=== PATIENT | female | born 1975 | race Caucasian/White ===

== ENCOUNTER 2016-03-15 15:09 | Emergency (ER) | payer OTHER ==
[~2016-03-15] VITALS: Ht 170.2 cm; Wt 90.7 kg
[~2016-03-15 15:09] MED LIST: ALPRAZOLAM0.5 MG PO; CALCITRIOL0.25 MC1 PO; CYCLOBENZAPRINE10 M1 PO; LO LOESTRIN FE1 EACH PO; OSCAL ULTRA 6001 TAB PO; POTASSIUM CHLO20 ME2 PO; PROZAC20 M2 PO
[2016-03-15] MEDS ORDERED: ALPRAZOLAM0.5 M4 PO (15:31)
[2016-03-15] MEDS ORDERED: VITAMIN B-121000 MC3 PO (15:31)
--- NOTE | 2016-03-15 16:11 | ED MVC/FALL/TRAUMA COMPLAINT ---
History of Present Illness General Chief Complaint: Fall Stated Complaint: FALL HIT HEAD/KNEE Source: patient Exam Limitations: no limitations Vital Signs & Intake/Output Vital Signs & Intake/Output Vital Signs Date Time Temp Pulse Resp B/P Pulse O2 O2 Flow FiO2 Ox Delivery Rate 03/15 1759 98.0 92 18 141/85 97 Room Air 03/15 1514 97.4 120 20 132/92 96 Room Air Allergies Coded Allergies: azithromycin (HIVES 01/10/16) Reconcile Medications Alprazolam 0.5 MG TABLET 1 TAB PO BIDP PRN ANXIETY (Reported) [place]/Ca/Cu/MG/Mn/Vit C/Vit (Oscal Ultra 600) 1 TAB TAB 1 TAB PO TID SUPPLEMENT (Reported) Calcitriol 0.25 MCG CAPSULE 1 CAP PO BID SUPPLEMENT (Reported) Cyanocobalamin (Vitamin B-12) 1,000 MCG TABLET 1 TAB PO DAILY SUPPLEMENT ( Reported) Fluoxetine HCl (Prozac) 20 MG CAPSULE 3 CAP PO QAM MENTAL HEALTH (Reported) Norethindrone-E.estradiol-Iron (Lo Loestrin Fe 1-10 Tablet) 1MG-10(24) TABLET 1 TAB PO DAILY BC (Reported) Potassium Chloride 20 MEQ TAB.ER.PRT 1 TAB PO DAILY SUPPLEMENT (Reported) Triage Note: PT TO ED LEFT GREAT TOE PAIN, RIGHT KNEE, AND HEAD PAIN S/P FALLING IN SHOWER. STATES SHE SLIPPED AND FELL DOWN. HITTING KNEE ON TUB AND BACK OF HEAD ON TUB. DENIES LOC. Triage Nurses Notes Reviewed? yes Onset: Abrupt Duration: constant Timing: single episode today Severity: severe Severity Numbers: 7 Injuries/Fall Location: head, lower extremity Loss of Consciousness: unsure : No Patient currently breastfeeds: No HPI: Patient is a 40-year-old female who presents emergency and that while in the shower today she slipped and had a mechanical fall which she subsequently struck the right anterior knee to the fiberglass tub which resulted in the tub cracking and subsequent patient did strike the posterior aspect of her head to the side of the tub. Unknown loss of consciousness. The significant other does present with patient stating that he immediately came to her aid which patient has been in her normal state health and no change in baseline mental status. Patient complains of anterior posterior headache generalized neck pain and right anterior knee pain made worse with ambulation. No medications given prior to arrival. Denies any blurred vision nausea vomiting photophobia abdominal pain. (RAMIN MONTES) Past History Travel History Traveled to [place] past 21 day No Medical History Any Pertinent Medical History? see below for history Neurological: NONE EENT: NONE Cardiovascular: NONE Respiratory: NONE Gastrointestinal: NONE Hepatic: NONE Renal: NONE Musculoskeletal: sciatica Psychiatric: depression Endocrine: PSEUDOPARATHYROIDISM Blood Disorders: NONE Cancer(s): NONE PAVING CONTRACTOR/Reproductive: NONE History of MRSA: No History of VRE: No History of CDIFF: No Influenza Vaccine: 11/23/15 Surgical History Surgical History: non-contributory Psychosocial History Who do you live with Family Services at Home None What is your primary language Setsw[place] Tobacco Use: Never used ETOH Use: denies use Illicit Drug Use: denies illicit drug use Family History Hx Contributory? No (RAMIN MONTES) Review of Systems Review of Systems Constitutional: Reports: no symptoms. Eyes: Reports: no symptoms. Ears, Nose, Throat, Mouth: Reports: no symptoms. Respiratory: Reports: no symptoms. Cardiovascular: Reports: no symptoms. Gastrointestinal/Abdominal: Reports: no symptoms. Genitourinary: Reports: no symptoms. Musculoskeletal: Reports: see HPI, joint pain. Skin: Reports: no symptoms. Neurological/Psychological: Reports: see HPI. All Other Systems: Reviewed and Negative (RAMIN MONTES) Physical Exam Physical Exam General Appearance: no apparent distress Comments: Well-developed well-nourished person in no acute distress HEENT: Normal EENT exam, extraocular motion intact, no nystagmus. Pupils equally round and reactive to light and accommodation. Nose is atraumatic. External auditory canal and Tympanic membranes clear. Pharynx normal. No swelling or edema. Neck: Supple, no lymphadenopathy, normal range of motion without pain or tenderness Decreased active range of motion noted central spinous pain noted generalized point tenderness noted Back: Nontender, no CVA tenderness. Cardiovascular: Regular rate and rhythms no murmurs rubs or gallops, normal JVP Respiratory: Chest nontender. No respiratory distress.breath sounds clear to auscultation bilaterally Abdomen: Soft, nontender nondistended, no appreciable organomegaly. Normal bowel sounds. No ascites Extremity: No edema, no calf tenderness to palpation, normal and equal pulses. Right knee generalized point tenderness noted with skin abrasions noted full active range of motion noted negative valgus stress test negative varus stress test negative anterior drawer test negative posterior drawer test Neuro: Alert oriented x3, motor sensory normal, cranial nerves II through XII grossly intact. Skin: No appreciable rash on exposed skin, skin is warm and dry. Psych: Mood and affect is normal, memory and judgment is normal. Core Measures ACS in differential dx? No Severe Sepsis Present: No Septic Shock Present: No (RAMIN MONTES) Progress Differential Diagnosis: aoritic dissection, abd injury, C/T/L spine injury, ext injury, ICH, pelvis injury, pnemothorax, spinal cord injury Plan of Care: Orders Procedure Date/time Status URINE 03/15 1638 Complete Laboratory Tests 03/15/16 1650: Urine Test NEGATIVE X-rays were unremarkable for osseous injury. There is no signs on physical exam of ligamentous injury. Patient had mild antalgic gait on discharge. Patient declined pain medications when offered. CT scan was unremarkable for acute ICH however I did discuss into no findings of calcifications and CT scan reports which I strongly advised patient to follow up with primary care doctor and was given a copy of CT scan. (JOSE LUIS COSTA,RAMIN) Diagnostic Imaging: Viewed by Me: Radiology Read, CT Scan. Radiology Impression: no acute abnormality Comments: PATIENT: DAVID LOWERY PRESENT AGE: 40 PATIENT ACCOUNT NO: [id number] : 75 LOCATION: [facility] ORDERING PHYSICIAN: RAMIN COSTA SERVICE DATE: 03/15/16-1632 EXAM TYPE: CAT - CT CERV SPINE WO IV CONTRAST; CT HEAD WO IV CONTRAST EXAMINATIONS: CT HEAD WITHOUT CONTRAST AND CT CERVICAL SPINE WITHOUT CONTRAST CLINICAL INFORMATION: History of fall. Possible loss of consciousness. Cervical spine pain. COMPARISON: None. TECHNIQUE: Contiguous helical images of the brain were obtained without IV contrast. Contiguous helical images of the cervical spine were obtained without IV contrast. Multiplanar reconstructions were performed. DLP: 1046.7 mGy-cm FINDINGS: There are no pathologic extra-axial fluid collections. There are marked symmetric calcifications involving the basal ganglia bilaterally. There is a tiny linear focus within the left cerebellar hemisphere measuring approximately 0.5 cm. This morphology would be unusual for hemorrhage. Calcification or artifact is favored. The lateral, third, fourth ventricles are nondilated and concordant with the appearance of the sulci. There is no definite evidence for acute intraparenchymal hemorrhage or infarct. There is neither mass nor mass effect. There is no shift of midline structures. The paranasal sinuses and mastoid air cells are clear. There are no osseous lesions. There is relative straightening of the normal cervical lordosis. Vertebral body heights and intervertebral disc spaces are maintained. The relationship between the lateral masses of C1 and the odontoid process is within normal limits. There is no acute fracture or subluxation. There is no cervical lymphadenopathy. The visualized lung apices are clear. IMPRESSION: 1. No definite acute intracranial hemorrhage. Linear focus within the left cerebellar hemisphere most likely represents calcification or artifact. 2. Extensive calcifications noted in the basal ganglia regions bilaterally. 3. No acute fracture or subluxation involving the cervical spine. 4. Relative straightening of the normal cervical lordosis may be related to patient positioning versus underlying muscle spasm. (RAMIN MONTES) Departure Departure Disposition: HOME OR SELF CARE Condition: Stable Clinical Impression Primary Impression: Right knee pain Secondary Impressions: Concussion, Minor head trauma Referrals: PORFIRIO AUGUSTINE,RODGER Garcia (PCP/Family) Additional Instructions: DISCUSSED BEGIN OVER THE COUNTER TYLENOL OR MOTRIN FOR PAIN AND INFLAMMATION Follow-up in one week to primary care doctor if symptoms do not improve. If symptoms worsen return to emergency room. Begin icing the area directly 20 minutes every 2 hours. Departure Forms: Customer Survey General Discharge Information (RAMIN MONTES) PA/INFECTION CONTROL COORDINATOR Co-Sign Statement Statement: ED Attending supervision documentation- [] I saw and evaluated the patient. I have also reviewed all the pertinent lab results and diagnostic results. I agree with the findings and the plan of care as documented in the PA's/INFECTION CONTROL COORDINATOR's documentation. x I have reviewed the ED Record and agree with the PA's/INFECTION CONTROL COORDINATOR's documentation. [] Additions or exceptions (if any) to the PAs/INFECTION CONTROL COORDINATOR's note and plan are summarized below: [] (IRVIN AUGSUTINE,ISHMAEL)
--- NOTE | 2016-03-15 17:43 | RADIOLOGY REPORT ---
EXAMINATION: XR KNEE, RIGHT CLINICAL INFORMATION: Fall, right knee pain COMPARISON: None. TECHNIQUE: 4 views of the right knee obtained FINDINGS: Medial and lateral joint spaces are maintained. No acute fracture or subluxation. No lytic or sclerotic lesion. No radiopaque foreign body. There is no joint effusion. The patellofemoral compartment is unremarkable aside from a tiny superior pole enthesophyte. No fluid level identified on the crosstable lateral view. IMPRESSION: Unremarkable right knee exam.
[2016-03-15 17:59] VITALS: BP 141/85
--- NOTE | 2016-03-15 18:01 | CT SCAN REPORT ---
EXAMINATIONS: CT HEAD WITHOUT CONTRAST AND CT CERVICAL SPINE WITHOUT CONTRAST CLINICAL INFORMATION: History of fall. Possible loss of consciousness. Cervical spine pain. COMPARISON: None. TECHNIQUE: Contiguous helical images of the brain were obtained without IV contrast. Contiguous helical images of the cervical spine were obtained without IV contrast. Multiplanar reconstructions were performed. DLP: 1046.7 mGy-cm FINDINGS: There are no pathologic extra-axial fluid collections. There are marked symmetric calcifications involving the basal ganglia bilaterally. There is a tiny linear focus within the left cerebellar hemisphere measuring approximately 0.5 cm. This morphology would be unusual for hemorrhage. Calcification or artifact is favored. The lateral, third, fourth ventricles are nondilated and concordant with the appearance of the sulci. There is no definite evidence for acute intraparenchymal hemorrhage or infarct. There is neither mass nor mass effect. There is no shift of midline structures. The paranasal sinuses and mastoid air cells are clear. There are no osseous lesions. There is relative straightening of the normal cervical lordosis. Vertebral body heights and intervertebral disc spaces are maintained. The relationship between the lateral masses of C1 and the odontoid process is within normal limits. There is no acute fracture or subluxation. There is no cervical lymphadenopathy. The visualized lung apices are clear. IMPRESSION: 1. No definite acute intracranial hemorrhage. Linear focus within the left cerebellar hemisphere most likely represents calcification or artifact. 2. Extensive calcifications noted in the basal ganglia regions bilaterally. 3. No acute fracture or subluxation involving the cervical spine. 4. Relative straightening of the normal cervical lordosis may be related to patient positioning versus underlying muscle spasm.
== END 2016-03-15 18:30 ==
LOC: ERH 15:09
DX: S06.0X9A Concussion with loss of consciousness of unspecified duration, initial encounter (principal); S09.90XA Unspecified injury of head, initial encounter; M25.561 Pain in right knee; W01.0XXA Fall on same level from slipping, tripping and stumbling without subsequent striking against object, initial encounter
CPT/HCPCS: 73562-RT; 81025

== ENCOUNTER 2016-06-22 05:44 | Emergency (ER) | payer OTHER ==
[~2016-06-22] VITALS: Ht 167.6 cm; Wt 90.7 kg
[~2016-06-22 05:44] MED LIST changes: +ALPRAZOLAM0.5 M4 PO; +VITAMIN B-121000 MC3 PO
--- NOTE | 2016-06-22 06:14 | ED HEADACHE COMPLAINT ---
History of Present Illness General Chief Complaint: Headache Stated Complaint: LEIGH Source: patient Exam Limitations: no limitations Vital Signs & Intake/Output Vital Signs & Intake/Output Vital Signs Date Time Temp Pulse Resp B/P B/P Pulse O2 O2 Flow FiO2 Mean Ox Delivery Rate 06/22 0713 96.9 84 18 139/83 98 Room Air 06/22 0618 96 Room Air 06/22 0616 98.0 100 18 141/74 96 Room Air Allergies Coded Allergies: azithromycin (HIVES 01/10/16) Reconcile Medications [place]/Ca/Cu/MG/Mn/Vit C/Vit (Oscal Ultra 600) 1 TAB TAB 1 TAB PO TID SUPPLEMENT (Reported) Calcitriol 0.25 MCG CAPSULE 1 CAP PO BID SUPPLEMENT (Reported) Fluoxetine HCl (Prozac) 20 MG CAPSULE 3 CAP PO QAM MENTAL HEALTH (Reported) Norethindrone-E.estradiol-Iron (Lo Loestrin Fe 1-10 Tablet) 1MG-10(24) TABLET 1 TAB PO DAILY BC (Reported) Potassium Chloride 20 MEQ TAB.ER.PRT 1 TAB PO DAILY SUPPLEMENT (Reported) Triage Nurses Notes Reviewed? yes : No Patient currently breastfeeds: No HPI: 40 yo woman in prior good health, with well controlled hypothyroidism, presents with diffuse headache, "I woke up and felt really nauseous... the lights were bothering my eyes... I had a headache." She notes no fevers, chills, dyspnea, cough, numbness, tingling, vision changes. (CHEN AUGUSTINE,EVA Jones) Past History Travel History Traveled to [place] past 21 day No Medical History Any Pertinent Medical History? see below for history Neurological: NONE EENT: NONE Cardiovascular: NONE Respiratory: NONE Gastrointestinal: NONE Hepatic: NONE Renal: NONE Musculoskeletal: sciatica Psychiatric: depression Endocrine: PSEUDOPARATHYROIDISM Blood Disorders: NONE Cancer(s): NONE SALES STORE CHECKER/Reproductive: NONE History of MRSA: No History of VRE: No History of CDIFF: No Surgical History Surgical History: non-contributory Psychosocial History Who do you live with Family Services at Home None What is your primary language American Tobacco Use: Never used Family History Hx Contributory? No (CHEN AUGUSTINE,EVA Jones) Review of Systems Review of Systems Constitutional: Reports: no symptoms. Eyes: Reports: no symptoms. Ears, Nose, Throat, Mouth: Reports: no symptoms. Respiratory: Reports: no symptoms. Cardiovascular: Reports: no symptoms. Gastrointestinal/Abdominal: Reports: no symptoms. Genitourinary: Reports: no symptoms. Musculoskeletal: Reports: no symptoms. Skin: Reports: no symptoms. Neurological/Psychological: Reports: no symptoms. Hematologic/Endocrine: Reports: no symptoms. Endocrine: Reports: no symptoms. Immunologic/Allergic: Reports: no symptoms. All Other Systems: Reviewed and Negative (CHEN AUGUSTINE,EVA Jones) Physical Exam Physical Exam General Appearance: well developed/nourished, no apparent distress Head: atraumatic, normal appearance, tenderness at insertion of cervical musculature, pain elicited with scalp manipulation Eyes: Bilateral: normal appearance, PERRL, EOMI. Ears, Nose, Throat: normal pharynx, normal ENT inspection, hearing grossly normal Neck: normal inspection, supple Respiratory: normal breath sounds, chest non-tender, no respiratory distress, quiet respiration, lungs clear Cardiovascular: regular rate/rhythm Gastrointestinal: normal bowel sounds, soft, non-tender Extremities: normal inspection, normal capillary refill, normal range of motion, no edema Psychiatric: awake, alert, oriented x 3 Cranial Nerves: normal hearing, normal speech, PERRL Coordination/Gait: normal finger to nose, normal gait Motor/Sensory: no motor/sensory deficits, motor deficit, sensory deficit Reflexes: 1+: bicep (R), bicep (L). Skin: intact, normal color, warm/dry Core Measures Severe Sepsis Present: No Septic Shock Present: No (CHEN AUGUSTINE,EVA Jones) Progress Differential Diagnosis: cluster LEIGH, migraine LEIGH, musculoskeletal pain, sinusitis , viral cephalgia Plan of Care: Orders Procedure Date/time Status URINE 06/22 624 Complete Laboratory Tests 06/22/16 0637: Urine Test NEGATIVE Diagnostic Imaging: Viewed by Me: CT Scan. Discussed w/RAD: CT Scan. Hand-Off Endorsed To: MIRNA DANIEL DO Endorsed Time: 0700 Pending: CT, labs (CHEN AUGUSTINE,EVA Jones) Departure Departure Disposition: HOME OR SELF CARE Condition: Stable Clinical Impression Primary Impression: Headache Referrals: UNKNOWN (PCP/Family) Departure Forms: Customer Survey General Discharge Information Comments 06/22/16, 6:37am.... pt with headache with both migraine and musculoskeletal components... pt with family history of aneurysm... I have low clinical suspicion, but will check head ct for ICH. (CHEN AUGUSTINE,EVA Jones) Departure Comments 06/22/16 8:44 AM The patient was signed out to me by Dr. Steinberg at 7 AM. She is status post headache. She is medicated in the ED and her headache has near completely resolved. She said yesterday she was doing a new activity which she had never done before. She was in an escape room with her daughter. She said she gradually developed a frontal headache with some photophobia over the last 6-[address] scan of the head was negative, her neurological exam is completely normal now upon my exam, she has no nuchal rigidity and no photophobia. Funduscopic exam is normal and she has no visual complaints. Cranial nerves II through XII are intact. Health Advisor strength is equal. I considered the diagnosis of subarachnoid hemorrhage. Her neurological exam is normal she has no nuchal rigidity. The CT scan of the head was negative. I discussed the risks and benefits of lumbar puncture with the patient. Shared decision-making was utilized with this patient. She also declined blood work. She will return to the emergency department if her headache returns and will follow-up with the neurologist this week. (MIRNA DANIEL DO)
--- NOTE | 2016-06-22 07:54 | CT SCAN REPORT ---
EXAMINATION: CT HEAD WITHOUT CONTRAST CLINICAL INFORMATION: Headache. New onset. COMPARISON: 03/15/2016 TECHNIQUE: Contiguous axial imaging was performed from the skull base to vertex without intravenous administration of contrast. DLP: 600.7 mGy-cm FINDINGS: There is no evidence of acute intracranial hemorrhage or territorial infarction. No abnormal mass effect or midline shift is seen. Wilson to white matter differentiation is well preserved. No extra-axial fluid collections are identified. The ventricles are normal in size. Calcification is present within the bilateral globi pallidi. A linear calcification is also present within the left cerebellar hemisphere, unchanged. Otherwise, there is no abnormal attenuation within the brain parenchyma. The osseous structures and soft tissues are normal. The mastoid air cells and visualized portions of the paranasal sinuses are well aerated. IMPRESSION: No acute intracranial pathology.
[2016-06-22 09:04] VITALS: BP 138/70
== END 2016-06-22 09:04 ==
LOC: ERH 05:44
DX: R51 Headache (principal)
CPT/HCPCS: 81025; 96372; J1885; J3101

== ENCOUNTER 2016-07-22 07:15 | Emergency (ER) | payer OTHER ==
[~2016-07-22] VITALS: Ht 167.6 cm; Wt 90.7 kg
[2016-07-22 07:18] VITALS: BP 128/85
--- NOTE | 2016-07-22 07:34 | ED GENERAL ADULT ---
History of Present Illness General Chief Complaint: Fever Stated Complaint: FEVER Source: patient Exam Limitations: no limitations Vital Signs & Intake/Output Vital Signs & Intake/Output Vital Signs Date Time Temp Pulse Resp B/P B/P Pulse O2 O2 Flow FiO2 Mean Ox Delivery Rate 07/22 0718 98.9 94 20 128/85 98 Room Air Allergies Coded Allergies: azithromycin (HIVES 01/10/16) Reconcile Medications [place]/Ca/Cu/MG/Mn/Vit C/Vit (Oscal Ultra 600) 1 TAB TAB 1 TAB PO TID SUPPLEMENT (Reported) Calcitriol 0.25 MCG CAPSULE 1 CAP PO BID SUPPLEMENT (Reported) Fluoxetine HCl (Prozac) 20 MG CAPSULE 3 CAP PO QAM MENTAL HEALTH (Reported) Norethindrone-E.estradiol-Iron (Lo Loestrin Fe 1-10 Tablet) 1MG-10(24) TABLET 1 TAB PO DAILY BC (Reported) Potassium Chloride 20 MEQ TAB.ER.PRT 1 TAB PO DAILY SUPPLEMENT (Reported) Triage Note: PT TO ED C/O LOW GRADE FEVER SINCE WEDNESDAY. LAST TEMP 102 THIS AM. TOOK TYLENOL. Triage Nurses Notes Reviewed? yes Onset: Abrupt Duration: hour(s): Timing: recent history : No Patient currently breastfeeds: No HPI: 07/22/16 7:30 AM 40-year-old female presents to the emergency department for an isolated fever of 102. The patient states she was in her usual state of health until the past several days when she was taking up some carpet. She's been working on her knees a lot and exerting herself. She says that she also is under a lot of stress currently. This morning she felt hot and took her temperature and it was 102. She says she took some Tylenol and feels better currently. There is no other episodes of fever. She is completely asymptomatic now in the emergency department. There is no cough. There is no headache. There is no rash. There is no tick bite. There is no abdominal pain. There is no ear pain. She is completely asymptomatic other than the isolated single elevated temperature reading. The onset of the symptoms were abrupt, the duration was just this morning, the severity significant; as her symptoms required her to come to the emergency department for care. Past History Travel History Traveled to [place] past 21 day No Medical History Any Pertinent Medical History? see below for history Neurological: NONE EENT: NONE Cardiovascular: NONE Respiratory: NONE Gastrointestinal: NONE Hepatic: NONE Renal: NONE Musculoskeletal: sciatica Psychiatric: anxiety, depression Endocrine: PSEUDOPARATHYROIDISM Blood Disorders: NONE Cancer(s): NONE BODY HANGER/Reproductive: NONE History of MRSA: No History of VRE: No History of CDIFF: No Surgical History Surgical History: non-contributory Psychosocial History Who do you live with Family Services at Home None What is your primary language [place] Tobacco Use: Never used ETOH Use: denies use Illicit Drug Use: denies illicit drug use Family History Hx Contributory? No Review of Systems Review of Systems Constitutional: Reports: fever. EENTM: Reports: no symptoms. Respiratory: Reports: no symptoms. Cardiovascular: Reports: no symptoms. GI: Reports: no symptoms. Genitourinary: Reports: no symptoms. Musculoskeletal: Reports: no symptoms. Skin: Reports: no symptoms. Neurological/Psychological: Reports: anxiety. Hematologic/Endocrine: Reports: no symptoms. Immunologic/Allergic: Reports: no symptoms. Physical Exam Physical Exam General Appearance: well developed/nourished, alert, awake Head: atraumatic, normal appearance Eyes: Bilateral: normal appearance, PERRL, EOMI. Ears, Nose, Throat: normal pharynx, normal ENT inspection Neck: normal inspection, supple, full range of motion Respiratory: normal breath sounds, chest non-tender, no respiratory distress Cardiovascular: regular rate/rhythm Peripheral Pulses: 4+ radial (R), 4+ radial (L) Gastrointestinal: soft, non-tender Back: normal inspection Extremities: normal inspection, no edema Neurologic/Psych: no motor/sensory deficits, awake, alert, oriented x 3 Skin: intact, normal color, warm/dry Core Measures ACS in differential dx? No CVA/TIA Diagnosis: No Severe Sepsis Present: No Septic Shock Present: No Progress Differential Diagnoses I considered the following diagnoses in my evaluation of the patient: [Viral syndrome, intra-abdominal infection, pharyngitis, bacterial infection, erroneous hyperpyrexia, external hyperthermia] Plan of Care: FOLLOW UP WITH HER PCP THIS WEEEK Initial ED EKG: none Departure Departure Disposition: HOME OR SELF CARE Condition: Stable Clinical Impression Primary Impression: Fever Referrals: JORDAN BRIZUELA MD (PCP/Family) Departure Forms: Customer Survey General Discharge Information Comments I discussed options with the patient including obtaining blood samples. Her physical exam is completely normal at this time and she is completely asymptomatic. She will follow up with her doctor this week or return to the emergency department should fever returned or if she feels worse or has any symptoms. Critical Care Note Critical Care Note Critical Care Time: non-applicable
== END 2016-07-22 07:52 ==
LOC: ERH 07:15
DX: R50.9 Fever, unspecified (principal)

== ENCOUNTER 2017-09-07 07:27 | Emergency (ER) | payer OTHER ==
[~2017-09-07] VITALS: Ht 167.6 cm; Wt 104.3 kg
[~2017-09-07 07:27] MED LIST changes: +OS-CAL 500+D31 EACH PO; -OSCAL ULTRA 6001 TAB PO
--- NOTE | 2017-09-07 08:53 | RADIOLOGY REPORT ---
EXAMINATION: XR ELBOW, LEFT CLINICAL INFORMATION: Pain in left elbow for 3 days. COMPARISON: None TECHNIQUE: AP, lateral, and oblique views of the left elbow. FINDINGS: No fracture, subluxation, or joint effusion. The alignment is maintained. There is ill-defined calcification near the triceps insertion which may reflect calcific tendinosis. The soft tissues otherwise appear normal. IMPRESSION: No fracture, subluxation, or joint effusion. 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
--- NOTE | 2017-09-07 09:39 | ED GENERAL ADULT ---
See Addendum History of Present Illness General Chief Complaint: Upper Extremity Injury Stated Complaint: LT ELBOW PAIN Source: patient Exam Limitations: no limitations Vital Signs & Intake/Output Vital Signs & Intake/Output Vital Signs Date Time Temp Pulse Resp B/P B/P Pulse O2 O2 Flow FiO2 Mean Ox Delivery Rate 09/07 0738 98.3 90 18 147/89 98 Room Air Allergies Coded Allergies: azithromycin (HIVES 01/10/16) Reconcile Medications Calcitriol 0.25 MCG CAPSULE 1 CAP PO BID SUPPLEMENT (Reported) Calcium Carbonate/Vitamin D3 (Os-Lester 500+D3 Caplet) 500 MG-600 TABLET 1 TAB PO TID SUPPLEMENT (Reported) Fluoxetine HCl (Prozac) 20 MG CAPSULE 3 CAP PO QAM MENTAL HEALTH (Reported) Potassium Chloride 20 MEQ TAB.ER.PRT 1 TAB PO DAILY SUPPLEMENT (Reported) Triage Note: 41 YO FEMALE TO TRIAGE FOR EVAL OF L ELBOW PAIN X A FEW DAYS. DENIES ANY INJURY. STATES TRIED MOTRIN AND TYLENOL WIHTOUT RELIEF. Triage Nurses Notes Reviewed? yes Onset: Abrupt Duration: day(s): Timing: recent history : No Patient currently breastfeeds: No HPI: 09/07/17 41-year-old female presents to the emergency department for left elbow pain. She says she was dragging a bed last week and now has pain to the left elbow. She does have a history of lateral epicondylitis in the past. She denies any swelling fever or rash or tick bite. She denies other complaints. Physical examination she does have point tenderness to the left lateral epicondyle. She also has pain on range of motion of the left elbow. No swelling. Past History Travel History Traveled to [place] past 21 day No Medical History Any Pertinent Medical History? see below for history Neurological: NONE EENT: NONE Cardiovascular: NONE Respiratory: NONE Gastrointestinal: NONE Hepatic: NONE Renal: NONE Musculoskeletal: sciatica Psychiatric: anxiety, depression Endocrine: PSEUDOPARATHYROIDISM Blood Disorders: NONE Cancer(s): NONE ERP PROGRAMMER/Reproductive: NONE History of MRSA: No History of VRE: No History of CDIFF: No Surgical History Surgical History: non-contributory Psychosocial History Who do you live with Family Services at Home None What is your primary language Azeri Tobacco Use: Never used Family History Hx Contributory? No Review of Systems Review of Systems Constitutional: Denies: fever. EENTM: Reports: no symptoms. Respiratory: Denies: short of breath. Cardiovascular: Denies: chest pain. GI: Denies: abdominal pain. Genitourinary: Reports: no symptoms. Musculoskeletal: Reports: see HPI. Skin: Reports: no symptoms. Neurological/Psychological: Reports: no symptoms. Hematologic/Endocrine: Reports: no symptoms. Immunologic/Allergic: Reports: no symptoms. Physical Exam Physical Exam General Appearance: alert, awake, anxious, moderate distress Head: atraumatic, normal appearance Eyes: Bilateral: normal appearance, PERRL, EOMI. Ears, Nose, Throat: normal pharynx, normal ENT inspection, hearing grossly normal Neck: normal inspection, supple, full range of motion Respiratory: normal breath sounds Cardiovascular: regular rate/rhythm Peripheral Pulses: 4+ radial (R), 4+ radial (L) Gastrointestinal: soft, non-tender Back: normal range of motion Extremities: tenderness Neurologic/Psych: no motor/sensory deficits, awake, alert, oriented x 3 Skin: intact, normal color, warm/dry Comments: She has tenderness to the lateral condyle. She can be put in a sling and take ibuprofen as directed. Core Measures ACS in differential dx? No CVA/TIA Diagnosis: No Sepsis Present: No Sepsis Focused Exam Completed? No Progress Differential Diagnoses I considered the following diagnoses in my evaluation of the patient: [Fracture, dislocation, abscess, cellulitis, lateral epicondyles right's, DVT Plan of Care: Use the sling for 7 days, follow-up with her doctor this week, Shiva for pain Initial ED EKG: none Departure Departure Disposition: STILL A PATIENT Condition: Stable Clinical Impression Primary Impression: Lateral epicondylitis Referrals: Kira AUGUSTIEN,Yessy Dahl (PCP/Family) Departure Forms: Customer Survey General Discharge Information Comments PATIENT: DAVID LOWERY PRESENT AGE: 41 PATIENT ACCOUNT NO: [id number] : 75 LOCATION: [facility] ORDERING PHYSICIAN: Peewee Schulz DO (TBS) SERVICE DATE: 09/07/17215 EXAM TYPE: RAD - XRY-ELBOW 3 OR MORE VIEWS, L EXAMINATION: XR ELBOW, LEFT CLINICAL INFORMATION: Pain in left elbow for 3 days. COMPARISON: None TECHNIQUE: AP, lateral, and oblique views of the left elbow. FINDINGS: No fracture, subluxation, or joint effusion. The alignment is maintained. There is ill-defined calcification near the triceps insertion which may reflect calcific tendinosis. The soft tissues otherwise appear normal. IMPRESSION: No fracture, subluxation, or joint effusion. 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 DICTATED BY: Fatoumata Riley MD DATE/TIME DICTATED:09/07/17846 HIRED HAND:JAMISON DATE/TIME TRANSCRIBED:09/07/17846 CONFIDENTIAL, DO NOT COPY WITHOUT APPROPRIATE AUTHORIZATION. <Electronically signed in Other Vendor System> SIGNED BY: Fatoumata Riley MD 09/07/17 0853 Critical Care Note Critical Care Note Critical Care Time: non-applicable
[2017-09-07 10:23] VITALS: BP 136/70
== END 2017-09-07 10:24 ==
LOC: ERH 07:27
DX: M77.12 Lateral epicondylitis, left elbow (principal)
CPT/HCPCS: 73080-LT